=== PATIENT | male | born 1990 | race Caucasian/White ===

== ENCOUNTER 2016-09-02 02:44 | Emergency (ER) | payer BC ==
[~2016-09-02] VITALS: Ht 182.9 cm; Wt 81.0 kg
[2016-09-02 04:30] VITALS: BP 126/83
[2016-09-02] MEDS ORDERED: IBUPROFEN 600MG TABLET PO ONE (05:00)
[2016-09-02 05:10] LABS: *AMPHETAMINES SCREEN URINE PRESUMTIVE POSITIVE (NEGATIVE); *BARBITURATES SCREEN URINE NEGATIVE (NEGATIVE); *BENZODIAZEPINES SCREEN URINE NEGATIVE (NEGATIVE); *COCAINE SCREEN URINE NEGATIVE (NEGATIVE); CANNABINOID URINE SCREEN NEGATIVE (NEGATIVE); ECSTASY MDMA SCREEN URINE CONF.TEST INDICATED (NEGATIVE); METHADONE URINE SCREEN NEGATIVE (NEGATIVE); OPIATES URINE SCREEN PRESUMTIVE POSITIVE (NEGATIVE); PHENCYCLIDINE URINE SCREEN NEGATIVE (NEGATIVE)
== END 2016-09-02 05:28 | disposition home or self-care (01) ==
LOC: ER 02:45
DX: Z76.0 Encounter for issue of repeat prescription (principal); M79.671 Pain in right foot; F17.210 Nicotine dependence, cigarettes, uncomplicated; Z88.8 Allergy status to other drugs, medicaments and biological substances
CPT/HCPCS: 80305; 99283